=== PATIENT | female | born 1955 | race Caucasian/White ===

== ENCOUNTER 2016-06-21 06:42 | Day surgery (SDC) | payer BC ==
--- NOTE | 2016-06-13 00:25 | HP ---
PREOPERATIVE HISTORY AND PHYSICAL: DATE OF SURGERY/ADMISSION: 06/21/16 [facility] PROCEDURE: Left index, long and ring finger trigger finger releases. CHIEF COMPLAINT: Triggering of left index, long and ring fingers. HISTORY OF PRESENT ILLNESS: This is a 60-year-old female who reports catching, clicking and locking in her left index, long and ring fingers on and off for about a year now. 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 She also gets symptoms when she knits and during other activities of daily life. She is interested in pursuing surgical intervention at this time for correction of the problem. She has had surgery in the past on her right hand for trigger finger releases and has done quite well with that. She has consented to proceed with surgical intervention at this time for her left hand index, long and ring trigger fingers. PAST MEDICAL HISTORY: Unremarkable. PAST SURGICAL HISTORY: 1. Right hand trigger finger releases. 2. Ureter reimplantation x2. 3. Left knee surgery for meniscal tear. 4. Appendectomy. 5. Breast lumpectomy. 6. [place] teeth extraction. 7. Right eye surgery. CURRENT MEDICATIONS: 1. Advil p.r.n. 2. Annie-D 12 hour allergy p.r.n. 3. Multivitamin daily. 4. Turmeric 500 mg b.i.d. ALLERGIES: 1. BACTRIM causes palpitations. 2. PERCOCET causes nausea and vomiting. FAMILY MEDICAL HISTORY: Significant for heart disease and diabetes. 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 She denies tobacco use and recreational drug use. She does admit to alcohol intake on rare occasion. REVIEW OF SYSTEMS: General: Negative for fevers, chills, or night sweats. No known anesthesia problems. HEENT: Negative for headache, lightheadedness, or syncopal episodes. Integumentary: Negative for abrasions, lesions, or open wounds. Cardiothoracic: Negative for chest pain, palpitations, or edema. Negative for hypertension. Pulmonary: Negative for shortness of breath with exertion, chronic cough, or COPD. GI: Negative for nausea, vomiting, diarrhea , constipation, or GERD. : Negative for nocturia, urinary frequency, urgency , or history of UTIs. Musculoskeletal: Positive for current complaint. Negative for chronic intermittent back pain or history of fractures. Neurological: Negative for paresthesias, numbness, history of seizure, stroke, or epilepsy. Endocrine: Negative for diabetes or thyroid issues. Hematologic: Negative for easy bruising, anemia, excessive bleeding, or history of DVT. Infectious Disease: Negative for history of MRSA, hepatitis C, or HIV. PHYSICAL EXAMINATION GENERAL: Well-developed, well-nourished 60-year-old female, in no acute distress. VITAL SIGNS: Height 5 feet 3 inches, weight 130 pounds. Pulse rate 64, blood pressure 128/82. HEENT: Normocephalic, atraumatic. Pupils are equal, round, and reactive to light and accommodation. Extraocular movements are intact. NECK: Supple. No palpable lymph nodes. Throat is clear. PULMONARY: Lungs are clear to auscultation bilaterally. No wheezes, rales, or rhonchi. CARDIOVASCULAR: Regular rate and rhythm. S1, S2. There was a mild murmur detected. No rubs or gallops. No edema. ABDOMEN: Positive bowel sounds, soft, nontender. MUSCULOSKELETAL: On exam of her left hand, there is no visible swelling. There is tenderness to palpation at the A1 artie of the index, long and ring fingers. She has full motion of the fingers, but has active triggering of the middle and index fingers. Neurovascular function is intact. NEUROLOGIC: Alert and oriented x3. Cranial nerves II through XII are intact. Sensation is intact to light touch. IMPRESSION: Trigger fingers; left index, middle and ring. PLAN: The patient is scheduled to undergo a left index, long and ring finger trigger finger release with Dr. Luevano on 06/21/16. She will follow up in the office 10 to 14 days postop for suture removal. A prescription for Ultracet was e- scribed to the patient's pharmacy for postoperative pain management. STEFANY NIEVES [id number]/[facility] #: [id number] MTDD
[~2016-06-21 06:42] MED LIST: Buffered Lidocaine 1% SYR 3ML* 3 ML/SYR SYRINGE INTRADERM ONE
[2016-06-21] MEDS ORDERED: fentaNYL* 50 MCG/ML 2 ML VIAL (100 MCG VIAL) ONE (07:25)
[2016-06-21] MEDS ORDERED: Midazolam* 1 MG/ML 2 ML VIAL (2 MG) ONE (07:25)
[2016-06-21] MEDS ORDERED: Lidocaine 1% INJ* 10 MG/ML 30 ML SDV ONE (07:31)
[2016-06-21] MEDS ORDERED: Propofol* 10 MG/ML 20 ML BTL IV PUSH ONE (07:46)
[2016-06-21 08:49] VITALS: BP 144/81
--- NOTE | 2016-06-21 13:44 | OP ---
DATE OF OPERATION: 06/21/16 [facility] DATE OF : 53 SURGEON: Kacy Luevano MD EMERGENCY SPILL RESPONSE TECHNICIAN: STEFANY Ferreira ANESTHESIOLOGIST: Valentin Craven MD ANESTHESIA: Local MAC. PRE-OP DIAGNOSIS: Index, long, and ring finger trigger on the left hand. POST-OP DIAGNOSIS: Index, long, and ring finger trigger on the left hand. OPERATIVE PROCEDURE: Index, long, and ring finger trigger release, left hand. ESTIMATED BLOOD LOSS: Zero. TOURNIQUET TIME: About 15 minutes. INDICATION FOR PROCEDURE: Lis a 60-year-old female who has triggering and locking of her left hand index, long, and ring fingers. She has failed conservative treatment and presents for trigger finger release. DESCRIPTION OF PROCEDURE: The patient was brought to the operating room, was given a sedation anesthetic, and a local infiltration of 10 cc of 1% plain lidocaine in the palm of her left hand. The skin of her left hand and forearm was prepped and draped in the usual sterile fashion. The hand and forearm were exsanguinated and the tourniquet elevated to 250 mmHg. A transverse incision was made over the A1 pulleys of the index, long, and ring fingers of the left hand. We dissected bluntly through the subcutaneous tissue down to the 3 flexor tendon sheath. Each A1 artie was incised longitudinally completely releasing the tendons. There was some tenosynovitis surrounding the index and long finger tendons. This was sent for pathology. There was some mild abrasion of the index and long finger tendons. The wound was irrigated and the skin edges reapproximated with 4-0 nylon suture. The wound was dressed with Xeroform, 4x4, Webril, and an Kj wrap. The patient tolerated the procedure well and was brought to the recovery room in good condition. [id number]/[facility] #: [id number] BARBARA
== END 2016-06-21 09:05 | disposition home or self-care (01) ==
LOC: OREAST 06:42
PROVIDERS: ATTEND Orthopaedic Surgery
DX: M65.322 Trigger finger, left index finger (principal); M65.332 Trigger finger, left middle finger; M65.342 Trigger finger, left ring finger
CPT/HCPCS: 88305; J2250; J2704; J3010

== ENCOUNTER 2016-09-14 22:08 | Emergency (ER) | payer BC ==
[2016-09-14 22:16] VITALS: BP 134/77
[2016-09-14] MEDS ORDERED: Ibuprofen TAB* 600 MG PO ONE (22:50)
--- NOTE | 2016-09-14 23:44 | ED ---
Lower Extremity - HPI Summary HPI Summary: Patient presents with - History of Current Complaint Chief Complaint: EDExtremityLower Stated Complaint: RIGHT FOOT PAIN Time Seen by Provider: 09/14/16 22:23 Hx Obtained From: Patient, Family/Network Architect Mechanism Of Injury: Twisted Onset of Pain: Hours Onset/Duration: Still Present Severity Initially: Mild Severity Currently: Moderate Pain Intensity: 4 Timing: Constant Location: Is Discrete @ - right ankle Character Of Pain: Sharp, Aching, Stiffness Associated Signs And Symptoms: Positive: Swelling Aggravating Factor(s): Ambulation Alleviating Factor(s): Nothing Able to Bear Weight: Yes - with pain - Allergies/Home Medications Allergies/Adverse Reactions: Allergies Allergy/AdvReac Type Severity Reaction Status Date / Time Oxycodone [From Percocet] Allergy SEVERE Verified 06/21/16 07:07 VOMITING Sulfamethoxazole Allergy RAPID Verified 06/21/16 07:07 w/Trimethoprim HEART BEAT [From Bactrim] PMH/Surg Hx/FS Hx/Imm Hx Endocrine/Hematology History: Denies: Hx Anticoagulant Therapy, Hx Diabetes, Hx Thyroid Disease Cardiovascular History: Denies: Hx Hypertension, Hx Pacemaker/ICD Respiratory History: Reports: Other Respiratory Problems/Disorders - RESPIRATORY ALLERGY TO SOME DUST AND ENVIRONMENTAL- SINUS PROBLEMS Denies: Hx Asthma, Hx Chronic Obstructive Pulmonary Disease (COPD) GI History: Denies: Hx Ulcer History: Reports: Hx Kidney Infection, Other Problems/Disorders - 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 Denies: Hx Renal Disease Musculoskeletal History: Reports: Hx Arthritis - NECK, Hx Tendonitis - IN HER 19 'S Sensory History: Reports: Hx Cataracts - RIGHT HX OF, Hx Contacts or Glasses - GLASSES Denies: Hx Hearing Aid Opthamlomology History: Reports: Hx Cataracts - RIGHT HX OF, Hx Contacts or Glasses - GLASSES Neurological History: Reports: Other Neuro Impairments/Disorders - HISTORY OF DIZZINESS- REALTED TO SINUSES- NOT RECENTLY Psychiatric History: Reports: Hx Depression - SEASONAL ADJUSTMENT DISORDER- SLIGHT Denies: Hx Panic Disorder - Cancer History Cancer Type, Location and Year: LEFT BREAST CARCINOMA. PRE CANCEROUS ON SKIN Hx Chemotherapy: No Hx Radiation Therapy: Yes - Surgical History Surgery Procedure, Year, and Place: REPAIR OF URETERS A CHILD AND ADULT. WISDOM TEETH. LEFT KNEE SURGERY-20'S. RIGHT EYE SURGERY REPAIR X 3-VITRECTOMY, & CATARACT SURGERY AND 1 REVISION. APPENDECTOMY-2001. LEFT BREAST LUMPECTOMY- 2000 Hx Anesthesia Reactions: Yes - STATES VERY SENSITIVE- STATES TAKES A LONG TIME TO WAKE UP SOMETIMES Infectious Disease History: No Infectious Disease History: Denies: Hx Hepatitis, Hx Human Immunodeficiency Virus (HIV), Traveled Outside the [place] in Last 30 Days Comment Only: Hx Shingles - CHICKEN POX - Family History Known Family History: Positive: Cardiac Disease - Social History Occupation: Retired Lives: With Family Alcohol Use: Rare Substance Use Type: Reports: None Smoking Status (MU): Never Smoked Tobacco Review of Systems Positive: Myalgia, Decreased ROM, Edema Negative: Paresthesia, Numbness All Other Systems Reviewed And Are Negative: Yes Physical Exam Triage Information Reviewed: Yes Vital Signs On Initial Exam: Initial Vitals Temp Pulse Resp BP Pulse Ox 97.4 F 66 18 134/77 99 09/14/16 22:12 09/14/16 22:12 09/14/16 22:12 09/14/16 22:12 09/14/16 22:12 Vital Signs Reviewed: Yes Appearance: Positive: Well-Appearing, Well-Nourished, Pain Distress Skin: Positive: Warm, Skin Color Reflects Adequate Perfusion, Dry, Soft Head/Face: Positive: Normal Head/Face Inspection Eyes: Positive: EOMI, MARV, Conjunctiva Clear ENT: Positive: Hearing grossly normal Respiratory/Lung Sounds: Positive: Breath Sounds Present Cardiovascular: Positive: RRR Musculoskeletal: Positive: Limited @ - movement in all planes limited by pain, Pain @ - TTP lateral malleoli, Edema Right - mild Neurological: Positive: Sensory/Motor Intact, Alert, Oriented to Person Place, Time, NV Bundle Intact Distally, Abnormal Gait Psychiatric: Positive: Affect/Mood Appropriate AVPU Assessment: Alert Diagnostics - Vital Signs Vital Signs Temp Pulse Resp BP Pulse Ox 09/14/16 22:45 97.4 F 66 18 134/77 98 09/14/16 22:12 97.4 F 66 18 134/77 99 - Laboratory Lab Statement: Any lab studies that have been ordered have been reviewed, and results considered in the medical decision making process. - Radiology No standard instances Xray Interpretation: No Acute Changes Radiology Interpretation Completed By: ED Physician Lower Extremity Course/Dx - Diagnoses Differential Diagnosis/HQI/PQRI: Positive: Arthritis, Bursitis, Cellulitis, Contusion, Fracture (Closed), Sprain, Strain Provider Diagnoses: Right ankle sprain Discharge - Discharge Plan Condition: Stable Disposition: HOME Patient Education Materials: Ankle Sprain (ED), Ankle Stirrup Splint (ED) Referrals: Lily Bridges MD [Primary Care Provider] - Additional Instructions: Wear your splint to protect you as your pain improves. Come out of the splint several times daily to perform gentle range of motion exercises to avoid stiffness. Elevate your ankle above your heart and apply ice for 20 minutes several times daily to decrease swelling and pain. Use ibuprofen 600mg three times daily with meals for the next 3-5 days to decrease swelling and pain as well. Follow-up with your primary care provider in 3-5 days for evaluation if your symptoms have not begun to improve. Return to the emergency department if your symptoms worsen.
--- NOTE | 2016-09-15 06:29 | RAD ---
INDICATION: Right ankle pain. Inversion. Swelling. COMPARISON: None TECHNIQUE: AP, lateral, and oblique views were obtained. FINDINGS: The bony structures, joint spaces, and soft tissues are normal for age. IMPRESSION: NEGATIVE EXAMINATION.
== END 2016-09-14 23:43 | disposition home or self-care (01) ==
LOC: ED 22:08
DX: S93.401A Sprain of unspecified ligament of right ankle, initial encounter (principal); M79.671 Pain in right foot; X58.XXXA Exposure to other specified factors, initial encounter; Y93.9 Activity, unspecified; Y92.9 Unspecified place or not applicable
CPT/HCPCS: 99281; A9270-GY

== ENCOUNTER 2019-05-05 10:08 | Day surgery (SDC) | payer BC ==
[~2019-05-05 10:08] MED LIST changes: +Acetaminophen TAB* 325 MG PO ONE; -Buffered Lidocaine 1% SYR 3ML* 3 ML/SYR SYRINGE INTRADERM ONE; +Buffered Lidocaine 1% SYRIN* 1 ML/SYRINGE INTRADERM ONE; +Lactated Ringers 1000 ML Bag* 1,000 ML IV SCH
--- OUTSIDE RECORDS SUMMARY | 2019-05-05 10:12 | XMS REPORT | Continuity of Care Document ---
:1955 External Reference #:[id number] Author Name Hector Helms MD (transmitted by agent of provider Kacy Newberry) Address [address] [place] [address] Care Team Providers Name Role Phone Marilyn Parry M.D. - Family Care Team Information Telephone Maintainer [phone] Medicine Problems Active Problems Provider Date Localized, primary osteoarthritis of the shoulder Hector Helms MD Onset: region Strain of rotator cuff capsule Hector Helms MD Onset: 05/28/2016 Strain of rotator cuff capsule Hector Helms MD Onset: 07/30/2018 Social History Type Date Description Comments Sex Unknown ETOH Use Drinks 1 Alcoholic Beverage Per Week Tobacco Use Start: Unknown Patient has never smoked Smoking Status Reviewed: 05/04/19 Patient has never smoked Exercise Type/Frequency Does not exercise Allergies, Adverse Reactions, Alerts Active Allergies Reaction Severity Comments Date Bactrim 07/20/2013 Percocet 07/20/2013 Medications Active Medications SIG Qnty Indications Ordering Provider Date Advil prn Unknown CBD Oil 1 or 2 drops Unknown topically daily for joint pain 50 MG Medications Administered in Office Medication SIG Qnty Indications Ordering Provider Date Triamcinolone (Kenalog) Hector Helms MD 01/19/2019 Injection Triamcinolone (Kenalog) Hector Helms MD 10/16/2018 Injection Triamcinolone (Kenalog) Hector Helms MD 06/12/2018 Injection Immunizations Description No Information Available Vital Signs Date Vital Result Comment 05/04/2019 11:18am Height 63 inches 5'3" Weight 125.00 lb Heart Rate 59 /min BP Systolic Sitting 130 mmHg BP Diastolic Sitting 84 mmHg Respiratory Rate 14 /min Pain Level 2 O2 % BldC Oximetry 98 % BMI (Body Mass Index) 22.1 kg/m2 04/22/2019 1:55pm Height 63 inches 5'3" Weight 123.50 lb Heart Rate 92 /min BP Systolic 138 mmHg BP Diastolic 82 mmHg Respiratory Rate 18 /min Body Temperature 98.0 F Pain Level 1 O2 % BldC Oximetry 95 % BMI (Body Mass Index) 21.9 kg/m2 Results Description No Information Available Procedures Date Code Description Status 01/19/2019 20647 Inj/Aspir Major JT Or Bursa W/ US Completed 11/16/2018 05946 Event Monitor/Phys Review/Interp. Completed 07/21/2017 43765399 Colonoscopy Completed Medical Devices Description No Information Available Encounters Type Date Location Provider Dx Diagnosis Office Visit 01/19/2019 [facility] Hector Helms MD M19.011 Primary 9:00a at [place] osteoarthritis, right shoulder S46.011A Strain of musc/tend the rotator cuff of right shoulder, init Assessments Date Code Description Provider 05/04/2019 M19.011 Primary osteoarthritis, right shoulder Hcetor Helms MD 05/04/2019 S46.011D Strain of muscle(s) and tendon(s) of the Hector Helms MD rotator cuff of right shoulder, subsequent encounter 04/22/2019 M19.011 Primary osteoarthritis, right shoulder Hector Helms MD 04/22/2019 S46.011D Strain of muscle(s) and tendon(s) of the Hector Helms MD rotator cuff of right shoulder, subsequent encounter 01/20/2019 M19.011 Primary osteoarthritis, right shoulder Hector Helms MD 01/20/2019 S46.011A Strain of muscle(s) and tendon(s) of the Hector Helms MD rotator cuff of rig 01/19/2019 M19.011 Primary osteoarthritis, right shoulder Hector Helms MD 01/19/2019 S46.011A Strain of muscle(s) and tendon(s) of the Hector Helms MD rotator cuff of rig 11/16/2018 R42 Dizziness and giddiness Agus Benítez DO [facility] Plan of Treatment Future Appointment(s):05/05/2019 12:30 pm - Isaura Gray PA-C at [facility] at [place]9605/18/2019 1:15 pm - Hector Helms MD at [facility] at [place]/05/2019 12:30 pm - Hector Helms MD at [facility] at [place]bizt7005/04/2019 - Hector Helms, MDM19.011 Primary osteoarthritis , right pwwppbyoN98.011D Strain of muscle(s) and tendon(s) of the rotator cuff of right shoulder, subsequent encounterFollow up:Follow up: Functional Status Description No Information Available Mental Status Description No Information Available Referrals Description No Information Available
--- OUTSIDE RECORDS SUMMARY | 2019-05-05 10:12 | XMS REPORT | Continuity of Care Document ---
:1955 External Reference #:[id number] Author Name Hector Helms MD (transmitted by agent of provider Miguel Ny) Address [address] [place] [address] Care Team Providers Name Role Phone Marilyn Parry M.D. 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 Medicine Problems Active Problems Provider Date Localized, [...] Patient has never smoked Smoking Status Reviewed: 04/22/19 Patient has never smoked Exercise Type/Frequency Does not exercise Allergies, Adverse Reactions, Alerts Active Allergies Reaction Severity Comments Date Bactrim 07/20/2013 Percocet 07/20/2013 Medications Active Medications SIG Qnty Indications Ordering Provider Date Annie D 12HR Allergy Unknown Multi Vitamin Daily Unknown Tablets Turmeric 1 by mouth twice Unknown 500mg Capsules a day Advil prn Unknown CBD Oil cbd oil 1 or 2 Unknown drops as needed Medications Administered in Office Medication SIG Qnty Indications Ordering Provider Date Triamcinolone (Kenalog) Hector Helms MD 01/19/2019 Injection Triamcinolone (Kenalog) Hector Helms MD 10/16/2018 Injection Triamcinolone (Kenalog) Hector Helms MD 06/12/2018 Injection Immunizations Description No Information Available Vital Signs Date Vital Result Comment 04/22/2019 1:55pm Height 63 inches 5'3" Weight 123.50 lb Heart Rate 92 /min BP Systolic 138 mmHg BP Diastolic 82 mmHg Respiratory Rate 18 /min Body Temperature 98.0 F Pain Level 1 O2 % BldC Oximetry 95 % BMI (Body Mass Index) 21.9 kg/m2 01/19/2019 9:16am Height 63 inches 5'3" Weight 130.00 lb Heart Rate 78 /min BP Systolic 132 mmHg BP Diastolic 82 mmHg Body Temperature 97.3 F Pain Level 5 BMI (Body Mass Index) 23.0 kg/m2 Results Description No Information Available Procedures Date Code Description Status 01/19/2019 64692 Inj/Aspir Major JT Or Bursa W/ US Completed 11/16/2018 95783 Event Monitor/Phys Review/Interp. Completed 07/21/2017 [id number] Colonoscopy Completed Medical Devices Description No Information Available Encounters Type Date Location Provider Dx Diagnosis Office Visit 01/19/2019 [facility] Hector Helms MD M19.011 Primary 9:00a at [place] osteoarthritis, right shoulder S46.011A Strain of musc/tend the rotator cuff of right shoulder, init Assessments Date Code Description Provider 04/22/2019 M19.011 Primary osteoarthritis, right shoulder Hector Helms MD 04/22/2019 S46.011A Strain of muscle(s) and tendon(s) of the Hector Helms MD rotator cuff of rig 01/20/2019 M19.011 Primary osteoarthritis, right shoulder Hector Helms MD 01/20/2019 S46.011A Strain of muscle(s) and tendon(s) of the Hector Helms MD rotator cuff of rig 01/19/2019 M19.011 Primary osteoarthritis, right shoulder Hector Helms MD 01/19/2019 S46.011A Strain of muscle(s) and tendon(s) of the Hector Helms MD rotator cuff of rig 11/16/2018 R42 Dizziness and giddiness Agus Benítez DO [facility] Plan of Treatment Future Appointment(s):05/05/2019 7:30 am - Hector Helms MD at [facility]04/22/2019 - Hector Helms, MDM19.011 Primary osteoarthritis , right shoulderFollow up:Follow up: 10-14 days post opS46.011A Strain of muscle(s) and tendon(s) of the rotator cuff of rig Functional Status Description No Information Available Mental Status Description No Information Available Referrals Description No Information Available
--- OUTSIDE RECORDS SUMMARY | 2019-05-05 10:12 | XMS REPORT | Continuity of Care Document ---
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 High hemoglobin A1c level Onset: 12/11/2010 Social History Type Date Description Comments Sex Unknown Tobacco Use Start: Unknown Patient has never smoked Smoking Status Reviewed: 05/03/19 Patient has never smoked Allergies, Adverse Reactions, Alerts Active Allergies Reaction Severity Comments Date Bactrim Palpitations Moderate 01/01/2019 Percocet Vomiting Severe 01/01/2019 Biaxin Nausea Mild 01/01/2019 Medications Active Medications SIG Qnty Indications Ordering Provider Date CBD 50MG 1 ml by mouth twice Unknown a day Medications Administered in Office Medication SIG Qnty Indications Ordering Provider Date DTaP Vaccine Younger Than 7 Unknown 12/24/2007 (Infanrix) Injection Immunizations CPT Code Status Date Vaccine Lot # [id number] Given 03/05/2018 Tdap - Boostrix/Adacel 64057 Given 03/05/2018 Td >=7yrs [place] [address] Given 02/11/2018 Influenza Virus Vaccine, Quadrivalent, Split, Im Use 0.25ML 43591 Given 02/11/2018 Influenza Virus Vaccine, Quadrivalent, Split, Im Use 0.25ML 81039 Given 02/11/2018 Influenza Virus Vaccine, Quadrivalent, Split, Im Use 0.25ML 97519 Given 02/11/2018 Flu < 65 years 91511 Given 02/11/2018 Influenza Virus Vaccine, Quadrivalent, Split, Preservative Free 10304 Given 02/11/2018 Flumist 45690 Given 02/11/2018 Flu High Dose 52433 Given 02/11/2018 Influenza Virus Vaccine, Split, Preserv Free, Intradermal Use 39028 Given 10/01/2017 Shingrix - Shingles vaccine, Herpes Zoster 43383 Given 07/14/2017 Shingrix - Shingles vaccine, Herpes Zoster 70485 Given 01/26/2017 Influenza Virus Vaccine, Split, Preserv Free, Intradermal Use 10773 Given 01/26/2017 Flu High Dose 56032 Given 01/26/2017 Flumist 97159 Given 01/26/2017 Influenza Virus Vaccine, Quadrivalent, Split, Preservative Free 84327 Given 01/26/2017 Flu < 65 years 35173 Given 01/26/2017 Influenza Virus Vaccine, Quadrivalent, Split, Im Use 0.25ML 93229 Given 01/26/2017 Influenza Virus Vaccine, Quadrivalent, Split, Im Use 0.25ML 41825 Given 01/26/2017 Influenza Virus Vaccine, Quadrivalent, Split, Im Use 0.25ML 11244 Given 03/27/2016 Influenza Virus Vaccine, Quadrivalent, Split Virus, Im Use 0.5ML 53807 Given 03/27/2016 Flu < 65 years 51246 Given 03/27/2016 Influenza Virus Vaccine, Quadrivalent, Split, Preservative Free 78655 Given 03/27/2016 Flumist 42462 Given 03/27/2016 Flu High Dose 99070 Given 03/27/2016 Influenza Virus Vaccine, Split, Preserv Free, Intradermal Use 54319 Given 01/11/2015 Flu High Dose 79208 Given 01/11/2015 Flumist 42337 Given 01/11/2015 Influenza Virus Vaccine, Quadrivalent, Split, Preservative Free 36168 Given 01/11/2015 Flu < 65 years 15190 Given 01/11/2015 Influenza Virus Vaccine, Quadrivalent, Split, Im Use 0.25ML 06897 Given 01/11/2015 Influenza Virus Vaccine, Quadrivalent, Split, Im Use 0.25ML 74977 Given 01/11/2015 Influenza Virus Vaccine, Quadrivalent, Split, Im Use 0.25ML 56212 Given 01/11/2015 Zoster Shingles Vaccine For Subcutaneous Injection 54387 Given 03/10/2014 Influenza Virus Vaccine, Quadrivalent, Split Virus, Im Use 0.5ML 30508 Given 03/10/2014 Flu < 65 years 39918 Given 03/10/2014 Influenza Virus Vaccine, Quadrivalent, Split, Preservative Free 65693 Given 03/10/2014 Flumist 90531 Given 03/10/2014 Flu High Dose 73693 Given 03/09/2013 Influenza Virus Vaccine Split Virus Intramuscular Use 0.5ML 01564 Given 03/09/2013 Flu High Dose 74943 Given 03/09/2013 Flumist 55489 Given 03/09/2013 Influenza Virus Vaccine, Quadrivalent, Split, Preservative Free 22812 Given 03/09/2013 Flu < 65 years 39575 Given 03/09/2013 Influenza Virus Vaccine, Quadrivalent, Split, Im Use 0.25ML 41433 Given 03/09/2013 Influenza Virus Vaccine, Quadrivalent, Split, Im Use 0.25ML 27204 Given 03/09/2013 Influenza Virus Vaccine, Quadrivalent, Split, Im Use 0.25ML 91905 Given 03/30/2012 Influenza Virus Vaccine, Quadrivalent, Split, Im Use 0.25ML 44718 Given 03/30/2012 Influenza Virus Vaccine, Quadrivalent, Split, Im Use 0.25ML 69839 Given 03/30/2012 Influenza Virus Vaccine, Quadrivalent, Split, Im Use 0.25ML 95776 Given 03/30/2012 Flu < 65 years 15694 Given 03/30/2012 Flu < 65 years 69820 Given 03/30/2012 Influenza Virus Vaccine, Quadrivalent, Split, Preservative Free 61019 Given 03/30/2012 Flumist 56877 Given 03/30/2012 Flu High Dose 81824 Given 03/30/2012 Influenza Virus Vaccine, Split Virus, Preservative Free Im 0.5ML 08142 Given 12/24/2007 DT Peds for <7 years Vital Signs Date Vital Result Comment 05/03/2019 10:27am BP Systolic 124 mmHg BP Diastolic 76 mmHg Weight 124.00 lb Heart Rate 64 /min Body Temperature 98.1 F O2 % BldC Oximetry 96 % 09/09/2018 8:43am BP Systolic 138 mmHg Height 61.50 inches 5'1.50" Weight 135.00 lb Heart Rate 72 /min Body Temperature 97.5 F BMI (Body Mass Index) 25.09 kg/m2 Results Test Acquired Date Facility Test Result H/L Range Note CBC No Diff 05/03/2019 [facility] White Blood 6.5 10^3/uL Normal 3.5-10.[address] [place] [address] [phone] Red Blood Count 4.58 10^6/uL Normal 3.70-4.87 Hemoglobin 14.0 g/dL Normal 12.0-16.0 Hematocrit 42 % Normal 35-47 Mean Corpuscular Volume 91 fL Normal 80-97 Mean Corpuscular Hemoglobin 31 pg Normal 27-31 Mean Corpuscular HGB Conc 34 g/dL Normal 31-36 Red Cell Distribution Width 13 % Normal 10-15 Platelet Count 234 10^3/uL Normal 150-450 Mean Platelet Volume 9.0 fL Normal 7.4-10.4 Basic Metabolic 05/03/2019 [facility] Sodium 139 mmol/L Normal 135-[address] [place] [address] [phone] Potassium 4.1 mmol/L Normal 3.5-5.0 Chloride 105 mmol/L Normal 101-111 Co2 Carbon Dioxide 27 mmol/L Normal 22-32 Anion Gap 7 mmol/L Normal 2-11 Glucose 95 mg/dL Normal 70-100 Blood Urea Nitrogen 20 mg/dL Normal 6-24 Creatinine 0.69 mg/dL Normal 0.51-0.95 BUN/Creatinine Ratio 29.0 High 8-20 Calcium 9.5 mg/dL Normal 8.6-10.3 Egfr Non- 85.7 >60 Egfr 103.6 >60 1 Cholesterol 11/09/2018 N2N/CCD Import Cholesterol 269 mg/dL Glucose 11/09/2018 N2N/CCD Import Glucose 102 mg/dL High 70-100 mg/dL HDL Cholesterol 11/09/2018 N2N/CCD Import HDL Cholesterol 59.6 mg/dL LDL Cholesterol 11/09/2018 N2N/CCD Import LDL Cholesterol 187 mg/dL Triglycerides 11/09/2018 N2N/CCD Import Triglycerides 110 mg/dL 1 Because ethnic data is not always readily available, this report includes an eGFR for both -Americans and non- Americans. The National Kidney Disease Education Program (NKDEP) does not endorse the use of the MDRD equation for patients that are not between the ages of 18 and 70, are , have extremes of body size, muscle mass, or nutritional status, or are non- or non-. According to the National Kidney Foundation, irrespective of diagnosis, the stage of the disease is based on the level of kidney function: Stage Description GFR(mL/min/1.73 m(2)) 1 Kidney damage with normal or decreased GFR 90 2 Kidney damage with mild decrease in GFR 60-89 3 Moderate decrease in GFR 30-59 4 Severe decrease in GFR 15-29 5 Kidney failure <15 (or dialysis) Procedures Description No Information Available Medical Devices Description No Information Available Encounters Type Date Location Provider Dx Diagnosis Office Visit 05/03/2019 [facility] Marilyn Parry MD Z01.818 Encounter for other 9:45a preprocedural examination I49.3 Ventricular premature depolarization Assessments Date Code Description Provider 05/03/2019 Z01.818 Encounter for other preprocedural examination Marilyn Parry MD 05/03/2019 I49.3 Ventricular premature depolarization Marilyn Parry MD Plan of Treatment No Information Available Functional Status Description No Information Available Mental Status Description No Information Available Referrals Description No Information Available
[2019-05-05] MEDS ORDERED: Buffered Lidocaine 1% SYRIN* 1 ML/SYRINGE INTRADERM ONE (10:41)
[2019-05-05] MEDS ORDERED: ceFAZolin 2 GM in NS PREMIX(*) 2 GM/100 ML BAG IVPB ONE (10:41)
[2019-05-05] MEDS ORDERED: Naloxone* 0.4 MG/ML 1 ML VIAL IV PRN (11:25)
[2019-05-05] MEDS ORDERED: HYDROmorphone INJ1* 1 MG/ML SYRINGE IV PRN (11:25)
[2019-05-05] MEDS ORDERED: Ibuprofen TAB* 400 MG PO PRN (11:25)
[2019-05-05] MEDS ORDERED: fentaNYL* 50 MCG/ML 2 ML VIAL (100 MCG VIAL) ONE (11:52)
[2019-05-05] MEDS ORDERED: Midazolam* 1 MG/ML 2 ML VIAL (2 MG) ONE (11:53)
[2019-05-05] MEDS ORDERED: Ropivacaine 0.2% * 2 MG/ML VIAL ONE (12:17)
[2019-05-05] MEDS ORDERED: Lidocaine 2% PF * 5 ML VIAL ONE (12:19)
[2019-05-05] MEDS ORDERED: Bupivacaine 0.5% SDV PF* 30ML VIAL ONE (12:19)
[2019-05-05] MEDS ORDERED: Ondansetron INJ* 2 MG/ML VIAL ONE (13:28)
[2019-05-05] MEDS ORDERED: Dexamethasone IV* 4 MG/ML 1 ML (4 MG) ONE (13:28)
[2019-05-05] MEDS ORDERED: Propofol* 10 MG/ML 20 ML BTL ONE (13:28)
[2019-05-05] MEDS ORDERED: methylPREDNISolone ACETATE 80* 80 MG/ML 1 ML VIAL ONE (13:40)
[2019-05-05 16:23] VITALS: BP 156/89
--- NOTE | 2019-05-06 00:25 | OP ---
CC: PCP * DATE OF OPERATION: 05/05/19 - ROOM #AA-1 DATE OF : 53 SURGEON: Hector Helms MD TRANSPLANT CASE MANAGER: STEFANY Nicholas. An call center assistant was needed for the entirety of the case to help with positioning, retraction, and was utilized throughout all portions of the case. ANESTHESIOLOGIST: Dr. Mora. ANESTHESIA: General with interscalene block. 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 POST-OP DIAGNOSIS: Right shoulder glenohumeral arthritis with bicipital tendinopathy and tendonitis and subacromial impingement. OPERATIVE PROCEDURE: Right shoulder arthroscopy with: 1. Extensive glenohumeral debridement. 2. Subacromial decompression and acromioplasty. 3. Open biceps tenodesis. 4. Intraarticular injection with 80 mg Depo-Medrol. COMPLICATIONS: None. ESTIMATED BLOOD LOSS: Minimal. IMPLANTS USED: One [employer] Q-Fix. INDICATIONS: Ms. Oneil is a 63-year-old female with significant osteoarthritis of the shoulder. She initially was going to present for a total shoulder replacement. Her arthritis pain did improve, but she was having catching type of pain. We talked about different treatment options and she has elected to proceed with surgical treatment. Risks and benefits were discussed at length including, but not limited to bleeding; infection; damage to nerves, vessels, surrounding structures; wound nonhealing; persistent pain; need for surgery; scarring; stiffness; incomplete relief of symptoms and risks of anesthesia. DESCRIPTION OF PROCEDURE: The patient was greeted in the preoperative area by attending surgeon. Correct extremity was marked. Consent was confirmed. The patient underwent interscalene nerve block by anesthesiologist, after which she was brought back to the operative suite, placed in supine position on the operating table and underwent general anesthesia and LMA intubation, after which she was placed in the left lateral decubitus position with all bony prominences padded. She was secured with pegboard. The right arm was then draped unsterile with 10 pounds of traction. The right shoulder was then prepped and draped in usual sterile fashion beginning with chlorhexidine prep, scrub and alcohol wipe and a final prep with ChloraPrep. After appropriate surgical pause indicating site, side and procedure and administration of antibiotics, a standard posterolateral portal was made sharply with 11-blade. Scope was introduced into the joint and the joint was examined. There was significant osteoarthritis grade 4 changes. The biceps had obvious tendinopathy and inflammation. The undersurface of the rotator cuff was intact, supraspinatus was intact. There was abundant synovitis about the shoulder. The anterior portal was made in an outside-in fashion. The shaver was used to debride back the anterior, posterior, superior labrum due to mild chondroplasty. The biceps was then released for tenotomy for later tenodesis. Once the intraarticular work was completed, attention was directed to the subacromial space. The scope was positioned in the subacromial space. A lateral port was made in an outside-in fashion. A shaver was used to debride back the abundant thick bursa that was present. The undersurface of the acromion was then skeletonized using electrocautery device. A 4-0 oval iman was then used to do an acromioplasty. The CA ligament was released. Once this was done, attention was directed to rotator cuff. Rotator cuff appeared to be grossly intact. There were no issues. The attention was directed to the biceps. The bed was airplaned to the right side. The anterior aspect of the shoulder was prepped again using with ChloraPrep. A 15-blade was used to make incision along with the biceps tendon. Soft tissues were carefully dissected to expose the pec which was elevated and the remainder section was done bluntly. The biceps was brought to the wound and the groove was prepared in the usual fashion using electrocautery device, red ball, rasp and osteotome. Q-Fix was deployed with excellent purchase and passed through the tendon at 1 cm proximal to the musculotendinous junction in a Americo-Ambrocio type configuration. The excess stump was excised and sutures were then shuttled back to the wound. The wounds were then copiously irrigated. The anterior wound was closed with layers with 3-0 Monocryl, the portal was closed with 3-0 nylon. The joint was intraarticularly injected with 80 mg of Depo-Medrol. The sterile dressing applied. A Cryo/Cuff and an UltraSling were applied. She was awoken from anesthesia and transferred to PACU in stable condition. POSTOPERATIVE PLAN: She will be discharged on pain medications, DVT prophylaxis considered, but deferred due to no previous personal or family history. She will be in a sling for 3 weeks. She will start therapy within a week. I will see the patient back in 10 to 14 days. [id number]/[facility] #: [id number] MTDD
[2019-05-06] MEDS ORDERED: HYDROmorphone INJ1* 1 MG/ML SYRINGE IV PRN (14:22)
[2019-05-06] MEDS ORDERED: Ibuprofen TAB* 400 MG PO PRN (14:22)
[2019-05-06] MEDS ORDERED: Naloxone* 0.4 MG/ML 1 ML VIAL IV PRN (14:22)
== END 2019-05-05 16:18 | disposition home or self-care (01) ==
LOC: OR 10:08 → UNDOADMIN 10:08 → AA 10:08 → OR 16:18
PROVIDERS: ATTEND Orthopaedic Surgery
DX: M19.011 Primary osteoarthritis, right shoulder (principal); M75.21 Bicipital tendinitis, right shoulder; M75.41 Impingement syndrome of right shoulder; G89.18 Other acute postprocedural pain
CPT/HCPCS: C1776; J0690; J1040; J1100; J2250; J2405; J2704; J2795; J3010; J3490